=== PATIENT | female | born 1975 | race Caucasian/White ===

== ENCOUNTER 2024-05-21 17:25 | Emergency (ER) | payer MEDICAID ==
[~2024-05-21] VITALS: Ht 165.1 cm; Wt 66.0 kg
[2024-05-21 17:28] VITALS: BP 127/83; PULSE 91; RESP 18; TEMP 98.5; O2SAT 99
== END 2024-05-21 17:55 | disposition home or self-care (01) ==
LOC: ER 17:25
DX: M54.2 Cervicalgia (principal); M54.6 Pain in thoracic spine; V49.9XXA Car occupant (driver) (passenger) injured in unspecified traffic accident, initial encounter; Y93.89 Activity, other specified; Y92.89 Other specified places as the place of occurrence of the external cause; Y99.8 Other external cause status
CPT/HCPCS: 99281